=== PATIENT | male | born 1990 | race African-American/Black ===

== ENCOUNTER 2016-11-08 19:48 | Emergency (ER) | payer OTHER ==
[2016-11-08] MEDS ORDERED: LORazepam 2 MG/ML VIAL (J2060) IV STA (20:01)
[2016-11-08] MEDS ORDERED: LORazepam 2 MG/ML VIAL (J2060) IM STA (20:03)
[2016-11-08] MEDS ORDERED: HALOPERIDOL 5 MG/ML VIAL (J1630) IM STA (20:04)
--- NOTE | 2016-11-08 21:20 | REPUSA ---
CLINICAL HISTORY: Neck pain. Trauma. TECHNIQUE: Multiple axial images were obtained through the cervical spine. Images were also reconstru cted in coronal and sagittal planes. The study was performed without IV contrast. COMMENTS: There is no fracture or spondylolisthesis visualized. The paraspinal soft tissues are unremarkable. T here are no lytic or blastic lesions. Straightening of cervical lordosis is seen, suggesting muscular spasm. There is evidence of minimal m ultilevel disk disease, demonstrated by minimal osteophytosis and endplate sclerosis. No significant disk herniation is noted at any level. Canal and foramina remain patent. IMPRESSION: 1. No fracture or spondylolisthesis. 2. Straightening of cervical lordosis is seen, suggesting muscular spasm. 3. Minimal multilevel spondylosis. Thank you for your kind referral of this patient.
[2016-11-08 21:54] LABS: BASO # 0.1 K/mm3 (0.0-0.2); BASO % 1.2 % (0.0-1.0); EOS # 0.1 K/mm3 (0.0-0.50); EOS % 1.4 % (0.0-3.0); LARGE UNSTAINED CELL # 0.4 K/mm3 (0.0-0.4); LARGE UNSTAINED CELL % 4.4 % (0.0-4.0); LYMPH # 4.8 K/mm3 (1.5-6.5); LYMPH % 52.8 % (24.0-44.0); MEAN CORPUSCULAR HEMOGLOBIN 30.6 pg (27.0-33.0); MEAN CORPUSCULAR HGB CONC 33.2 g/dl (32.0-36.5); MEAN CORPUSCULAR VOLUME 92.2 fl (80.0-96.0); MONO # 0.3 K/mm3 (0.0-0.8); NEUTROPHILS # 3.1 K/mm3 (1.8-7.7); NEUTROPHILS % 36.1 % (36.0-66.0); PLATELET COUNT, AUTOMATED 288 k/mm3 (150-450); RED CELL DISTRIBUTION WIDTH 13.8 % (11.5-14.5); WHITE BLOOD COUNT 8.4 K/mm3 (4.0-10.0)
[2016-11-08 22:01] LABS: ALBUMIN 3.8 GM/DL (3.2-5.2); ALBUMIN/GLOBULIN RATIO 0.97 (1.00-1.93); ALKALINE PHOSPHATASE 63 U/L (45-117); ALT/SGPT 31 U/L (12-78); ANION GAP 11 MEQ/L (8-16); AST/SGOT 27 U/L (15-37); BILIRUBIN,DIRECT 0.1 MG/DL (0.0-0.2); BILIRUBIN,TOTAL 0.4 MG/DL (0.2-1.0); BLOOD UREA NITROGEN 8 MG/DL (7-18); CALCIUM LEVEL 8.2 MG/DL (8.5-10.1); CARBON DIOXIDE LEVEL 25 MEQ/L (21-32); CHLORIDE LEVEL 109 MEQ/L (98-107); CREATININE FOR GFR 0.94 MG/DL (0.70-1.30); GLOMERULAR FILTRATION RATE > 60.0 (>60); GLUCOSE, FASTING 103 MG/DL (70-105); INR 1.16; POTASSIUM SERUM 3.5 MEQ/L (3.5-5.1); SODIUM LEVEL 145 MEQ/L (136-145); TOTAL PROTEIN 7.7 GM/DL (6.4-8.2)
[2016-11-08] MEDS ORDERED: NS 1,000 ML IV ONE (23:00)
[2016-11-08 23:07] LABS: METHADONE URINE NEGATIVE (NEGATIVE)
[2016-11-09 06:16] VITALS: BP 134/82
--- NOTE | 2016-11-09 08:00 | REP ---
Portable chest, 09:14 p.m., single AP view, the patient supine: Lung guo are clear. Cardiac size is borderline enlarged, however, there is magnification from positioning. . The lele, mediastinum, and bony thorax are unremarkable: Impression: Essentially negative portable chest. Signed by Basil Amaral MD 11/09/2016 07:51 A
== END 2016-11-09 06:41 | disposition home or self-care (01) ==
LOC: M ED 19:48 → EDBD 19:48 → M ED 11-09 06:41
DX: F10.129 Alcohol abuse with intoxication, unspecified (principal); V49.40XA Driver injured in collision with unspecified motor vehicles in traffic accident, initial encounter; Y92.410 Unspecified street and highway as the place of occurrence of the external cause; Y93.9 Activity, unspecified; Y99.8 Other external cause status
CPT/HCPCS: 70450; 71010; 72125; 80048; 80076; 80307; 83690; 85025; 85610; 85730; 96360; 96361; 96372; 99285; G0480; J1630; J2060